=== PATIENT | female | born 1950 | race Caucasian/White ===

== ENCOUNTER 2016-12-11 09:22 | Emergency (ER) | payer BC, MEDICARE ==
[~2016-12-11] VITALS: Ht 160 cm; Wt 52.0 kg
[2016-12-11 09:24] VITALS: BP 180/81; PULSE 86; RESP 16; TEMP 98; O2SAT 98
--- NOTE | 2016-12-11 12:18 | RADRPT ---
EXAM DATE/TIME: 12/11/2016 12:09 [facility] COMPARISON: No previous studies available for comparison. INDICATIONS : Left elbow pain, fell on it last night. MEDICAL HISTORY : None. SURGICAL HISTORY : None. ENCOUNTER: Initial ACUITY: 1 day PAIN SCORE: 10/10 LOCATION: Left elbow FINDINGS: Multiple view examination of the left elbow demonstrates no soft tissue swelling, joint effusion, or fracture. The osseous structures are in normal alignment. Bony mineralization is normal. CONCLUSION: Negative for fracture or dislocation. Follow up in 7-10 days is suggested if symptoms persist. Sean Jacinto MD FACR on December 11, 2016 at 12:15 Board Certified Radiologist. This report was verified electronically.
--- NOTE | 2016-12-11 12:21 | RADRPT ---
EXAM DATE/TIME: 12/11/2016 12:04 [facility] COMPARISON: No previous studies available for comparison. INDICATIONS : Left shoulder pain, fell on it last night. MEDICAL HISTORY : None. SURGICAL HISTORY : None. ENCOUNTER: Initial ACUITY: 1 day PAIN SCORE: 10/10 LOCATION: Left shoulder FINDINGS: Nondisplaced fracture greater tuberosity. Acromion glenoid intact. Anatomic alignment. CONCLUSION: Nondisplaced fracture greater tuberosity. Sean Jacinto MD FACR on December 11, 2016 at 12:19 Board Certified Radiologist. This report was verified electronically.
[2016-12-11] MEDS ORDERED: HYDR-3533 PO (12:30)
--- NOTE | 2016-12-11 12:33 | PD ---
HPI Chief Complaint: Fall Time Seen by Provider: 12:29 Travel History International Travel<30 days: No Contact w/Intl Traveler<30days: No Traveled to known affect area: No History of Present Illness HPI 66-year-old female presents the emergency department status post slip and fall while getting out of the shower yesterday. Having pain in the left shoulder and elbow. She has bruising along the anterior bicep region. She has no numbness, tingling, but does have decreased range of motion secondary to pain in the left arm. She denies hitting her head or neck pain. There is no loss of consciousness. She has no injury anywhere else. She is able to move the left forearm wrist and hand without difficulty. Pain is currently an 8 out of 10 in the anterior left shoulder. It is worse with movement. She is allergic to penicillin. PFSH Past Medical History ?: Not Social History Alcohol Use: Yes Tobacco Use: No Substance Use: No Allergies-Medications (Allergen,Severity, Reaction): Coded Allergies: penicillin G (Verified Allergy, Severe, RASH, 12/11/16) Reported Meds & Prescriptions Reported Meds & Active Scripts Active Lortab (Hydrocodone-Acetaminophen) 5-325 Mg Tab 1 Tab PO Q6H PRN Review of Systems Except as stated in HPI: all other systems reviewed are Neg General / Constitutional: No: Fever Eyes: No: Visual changes HENT: No: Headaches Cardiovascular: No: Chest Pain or Discomfort Respiratory: No: Shortness of Breath Gastrointestinal: No: Abdominal Pain Genitourinary: No: Dysuria Musculoskeletal: Positive: Arthralgias, Limited ROM, Pain Skin: No Rash Neurologic: No: Weakness Psychiatric: No: Depression Endocrine: No: Polydipsia Hematologic/Lymphatic: No: Easy Bruising Physical Exam Narrative GENERAL: Patient appears in mild distress. SKIN: Warm and dry. Normal color. Normal turgor. There is ecchymosis noted along the anterior left shoulder and biceps. There are no open wounds or abrasions. HEAD: Atraumatic. Normocephalic. Nontender EYES: Pupils equal and round. No scleral icterus. No injection or drainage. ENT: No nasal bleeding or discharge. Mucous membranes pink and moist. Pharynx is clear. Airway is patent. No dental injury. NECK: Trachea midline. No bony tenderness or step-off. Range of motion is full and nontender. CARDIOVASCULAR: Regular rate and rhythm. RESPIRATORY: No accessory muscle use. Clear to auscultation. Breath sounds equal bilaterally. MUSCULOSKELETAL: Extremities without clubbing, cyanosis, or edema. No obvious deformities. Patient has pain and tenderness along the anterior left shoulder with limited range of motion secondary to pain. There is no obvious deformity or crepitus appreciated. Left elbow is generalized tenderness. Range of motion NEUROLOGICAL: Awake and alert. No obvious cranial nerve deficits. Motor grossly within normal limits. Five out of 5 muscle strength in the arms and legs. Normal speech. PSYCHIATRIC: Appropriate mood and affect; insight and judgment normal. Data Data Last Documented VS Vital Signs Date Time Temp Pulse Resp B/P (MAP) Pulse Ox O2 Delivery O2 Flow Rate FiO2 12/11/16 09:24 98.0 86 16 180/81 (114) 98 Orders Orders Elbow, Complete (4 Vws) (12/11/16 11:45) Shoulder, Complete (>2vws) (12/11/16 11:45) Ice/Cold Pack (12/11/16 11:45) Splint Or Brace Apply/Monitor (12/11/16 12:25) MDM Medical Decision Making Medical Screen Exam Complete: Yes Emergency Medical Condition: Yes Differential Diagnosis Slip and fall. Elbow contusion. Shoulder contusion. Shoulder strain. Fracture. Narrative Course X-ray of the left elbow and shoulder are ordered per X-rays show no fracture dislocation of the left elbow. X-ray shows a nondisplaced fracture of the left proximal humerus. Patient is placed in a sling and swath for comfort. Patient is given Lortab 5/325 one every 6 hours when necessary pain #12. Patient should follow-up with primary care physician and/or Dr. Zheng's office the orthopedic on-call ensure proper healing. Diagnosis Primary Impression: Fall from slipping on slippery surface Qualified Codes: W01.0XXA - Fall on same level from slipping, tripping and stumbling without subsequent striking against object, initial encounter Additional Impression: Shoulder fracture, left Qualified Codes: S42.92XA - Fracture of left shoulder girdle, part unspecified , initial encounter for closed fracture Referrals: Primary Care Physician Patient Instructions: Arm Fracture in Adults (ED), General Instructions, How to Use a Sling (GEN) Additional Instructions: X-rays show no fracture dislocation of the left elbow. X-ray shows a nondisplaced fracture of the left proximal humerus. Patient is placed in a sling and swath for comfort. Patient is given Lortab 5/325 one every 6 hours when necessary pain #12. Patient should follow-up with primary care physician and/or Dr. Zheng's office the orthopedic on-call ensure proper healing. Scripts Hydrocodone-Acetaminophen (Lortab) 5-325 Mg Tab 1 TAB PO Q6H Y for PAIN, #12 TAB 0 Refills Prov: Stevo Bernal MD 12/11/16 Disposition: 01 DISCHARGE HOME Condition: Stable Richy Be Dec 11, 2016 12:33
== END 2016-12-11 12:51 | disposition home or self-care (01) ==
LOC: NEPK 09:22
DX: S42.92XA Fracture of left shoulder girdle, part unspecified, initial encounter for closed fracture (principal); W01.0XXA Fall on same level from slipping, tripping and stumbling without subsequent striking against object, initial encounter
CPT/HCPCS: 29240; 73030; 73080